=== PATIENT | male | born 1980 | race Caucasian/White ===

== ENCOUNTER 2020-12-14 12:35 | Emergency (ER) | payer OTHER ==
[~2020-12-14] VITALS: Ht 185.4 cm; Wt 89.4 kg
[2020-12-14 12:42] VITALS: BP 151/68
--- NOTE | 2020-12-14 12:55 | NUR ---
40/M BIB SELF WITH C/O LEFT PINKY LACERATION THAT OCCURRED WHILE MOVING PARTS AT WORK. BLEEDING CONTROLLED AT THIS TIME. PT IS ABLE TO MOVE FINGER AT THIS TIME AND NO LOSS OF SENSATION NOTED MEDHX: ASTHMA ALLERGIES: DENIES
--- NOTE | 2020-12-14 13:15 | NUR ---
XRAY BEDSIDE WITH PATIENT
[2020-12-14] MEDS: LIDOCAINE MPF 1% 10 MG/ML VIAL INJ ONE (13:24)
[2020-12-14] MEDS: IBUPROFEN 600 MG TAB PO ONE (13:24)
[2020-12-14] MEDS: BACITRACIN OINT 500 UNITS/GM PKT TP ONE (13:25)
--- NOTE | 2020-12-14 13:25 | NUR ---
BREONNA FLORES BEDSIDE FOR PROCEDURE
[2020-12-14] MEDS ORDERED: CEPH-588 PO (13:36)
[2020-12-14] MEDS ORDERED: NAPR-54 PO (13:36)
[2020-12-14 13:53] VITALS: BP 151/68
--- NOTE | 2020-12-14 13:53 | NUR ---
Patient discharged with v/s stable. Written and verbal after care instructions given and explained. Patient alert, oriented and verbalized understanding of instructions. Ambulatory with steady gait. All questions addressed prior to discharge. ID band removed. Patient advised to follow up with PMD. Rx of KEFLEX AND NAPROYSN given. Patient educated on indication of medication including possible reaction and side effects. Opportunity to ask questions provided and answered.
== END 2020-12-14 13:53 | disposition home or self-care (01) ==
LOC: MED 12:35
DX: S61.217A Laceration without foreign body of left little finger without damage to nail, initial encounter (principal); Z79.899 Other long term (current) drug therapy; W23.0XXA Caught, crushed, jammed, or pinched between moving objects, initial encounter; Y93.89 Activity, other specified; Y92.89 Other specified places as the place of occurrence of the external cause; Y99.8 Other external cause status
CPT/HCPCS: 12001; 73140; 90471; 90715; 99283; J2001; Q0092

== ENCOUNTER 2020-12-21 08:57 | Emergency (ER) | payer OTHER ==
[~2020-12-21] VITALS: Ht 182.9 cm; Wt 79.4 kg
[~2020-12-21 08:57] MED LIST: CEPH-588 PO; NAPR-54 PO
--- NOTE | 2020-12-21 09:18 | NUR ---
Brenden goss in ED - 12/21/20 at 1006 by [email or web address] EMT FL[place] ATTEMPTED TO CALL PT IN LOBBY, NO ANSWER AT THIS TIME
--- NOTE | 2020-12-21 09:20 | NUR ---
PT AMBULATED TO BED 11
[2020-12-21 09:21] VITALS: BP 141/100
--- NOTE | 2020-12-21 09:53 | NUR ---
dr. alston bedside evaluating pt
--- NOTE | 2020-12-21 10:06 | NUR ---
patient's left hand 5th digit was splinted. ER MD notified.
[2020-12-21 10:11] VITALS: BP 141/100
--- NOTE | 2020-12-21 10:11 | NUR ---
Patient discharged with v/s stable. Written and verbal after care instructions given and explained. Patient alert, oriented and verbalized understanding of instructions. Ambulatory with steady gait. All questions addressed prior to discharge. ID band removed. Patient advised to follow up with PMD. Opportunity to ask questions provided and answered.
== END 2020-12-21 10:11 | disposition home or self-care (01) ==
LOC: MED 08:57
DX: S67.197D Crushing injury of left little finger, subsequent encounter (principal); J45.909 Unspecified asthma, uncomplicated; Z48.00 Encounter for change or removal of nonsurgical wound dressing; X58.XXXD Exposure to other specified factors, subsequent encounter
CPT/HCPCS: 99283